=== PATIENT | male | born 1935 | race Caucasian/White ===

== ENCOUNTER 2016-09-12 22:51 | Emergency (ER) | payer MEDICARE, OTHER ==
[~2016-09-12 22:51] MED LIST: ASPIR 8181 MG PO; CATAPRES 0.1MG0.1 MG PO; DIOVAN HCT 3201 EACH PO; JANUMET 50-1,01 EACH PO; LIPITOR TAB 2020 MG PO
[2016-09-12 23:28] LABS: HEMOGLOBIN 12.3 gm/dl (14.0-17.5); RED BLOOD COUNT 4.55 M/UL (4.20-5.50); WHITE BLOOD COUNT 6.6 K/UL (4.5-11.0)
[2016-09-25] MEDS ORDERED: CATAPRES 0.1MG0.1 MG PO (19:46)
[2016-09-25] MEDS ORDERED: JANUMET 50-1,01 EACH PO (19:47)
[2016-09-25] MEDS ORDERED: HYDRALAZINE HCL50 MG PO (19:49)
[2016-09-25] MEDS ORDERED: EXFORGE 10-3201 EACH PO (19:50)
[2016-09-25] MEDS ORDERED: CIPRO250 MG PO (19:51)
[2016-09-30] MEDS ORDERED: PLAVIX 75 MG TA75 MG PO (15:16)
[2016-09-30] MEDS ORDERED: ARICEPT5 MG PO (15:16)
[2016-09-30] MEDS ORDERED: IMDUR ER TAB 6060 MG PO (15:17)
[2016-09-30] MEDS ORDERED: LOPRESSOR 25 MG25 MG PO (15:17)
[2016-09-30] MEDS ORDERED: PROCARDIA XL60 MG PO (15:18)
[2016-09-30] MEDS ORDERED: PROTONIX40 MG PO (15:18)
[2016-09-30] MEDS ORDERED: FLOMAX0.4 MG PO (15:19)
[2016-09-30] MEDS ORDERED: RANEXA500 MG PO (15:19)
[2016-09-30] MEDS ORDERED: NITROSTAT0.4 MG SL (15:20)
[2016-09-30] MEDS ORDERED: JANUVIA100 MG PO (15:21)
== END 2016-09-13 03:00 | disposition short-term general hospital (02) ==
LOC: ER1 22:51
PROVIDERS: Student in an Organized Health Care Education/Training Program
DX: I16.0 Hypertensive urgency (principal); G45.9 Transient cerebral ischemic attack, unspecified; E11.65 Type 2 diabetes mellitus with hyperglycemia; I10 Essential (primary) hypertension; Z79.84 Long term (current) use of oral hypoglycemic drugs; Z79.899 Other long term (current) drug therapy
CPT/HCPCS: 36415; 70450; 71010; 80053; 81001; 82550; 82553; 82962; 83874; 84484; 85025; 85610; 85730; 87086; 93005; 96374; 99285; J0360

== ENCOUNTER 2020-04-13 13:06 | Inpatient (IN) | payer MEDICARE, OTHER ==
[~2020-04-13] VITALS: Ht 182.9 cm; Wt 68.6 kg
[~2020-04-13 13:06] MED LIST changes: +ARICEPT10 MG PO; +CIPRO250 MG PO; +CLARITIN 10MG T10 MG PO; +EXFORGE 10-3201 EACH PO; +FLOMAX0.4 MG PO; +FLONASE 0.05% N16 GM; +HYDRALAZINE HCL50 MG PO; +IMDUR ER TAB 6060 MG PO; +JANUVIA100 MG PO; +LOPRESSOR 25 MG25 MG PO; +NITROSTAT0.4 MG SL; +PLAVIX 75 MG TA75 MG PO; +PROCARDIA XL60 MG PO; +PROTONIX40 MG PO; +RANEXA500 MG PO; +ZITHROMAX250 MG PO
[2020-04-13 14:16] LABS: HEMOGLOBIN 12.7 gm/dl (14.0-17.5); RED BLOOD COUNT 4.54 M/UL (4.20-5.50); WHITE BLOOD COUNT 4.6 K/UL (4.5-11.0)
[2020-04-13 14:50] LABS: BUN/CREATININE RATIO 17 (0-10)
[2020-04-13] MEDS ORDERED: GLUCOTROL 10 MG10 MG PO (21:00)
[2020-04-13] MEDS ORDERED: PROSCAR 5 MG TAB5 MG PO (21:01)
[2020-04-13] MEDS ORDERED: TRADJENTA5 MG PO (21:02)
[2020-04-13] MEDS ORDERED: FLONASE 0.05% N16 GM (21:03)
[2020-04-13] MEDS ORDERED: HYTRIN CAP 1 MG1 MG PO (21:04)
[2020-04-13] MEDS ORDERED: TRANDATE 200 M200 MG PO (21:05)
[2020-04-14 02:52] LABS: HEMOGLOBIN 12.6 gm/dl (14.0-17.5); RED BLOOD COUNT 4.51 M/UL (4.20-5.50)
[2020-04-14 03:02] LABS: WHITE BLOOD COUNT 2.9 K/UL (4.5-11.0)
[2020-04-15 02:37] LABS: HEMOGLOBIN 12.1 gm/dl (14.0-17.5); RED BLOOD COUNT 4.33 M/UL (4.20-5.50)
[2020-04-15 02:39] LABS: WHITE BLOOD COUNT 5.1 K/UL (4.5-11.0)
[2020-04-16 03:42] LABS: HEMOGLOBIN 11.9 gm/dl (14.0-17.5); RED BLOOD COUNT 4.31 M/UL (4.20-5.50)
[2020-04-16 03:49] LABS: WHITE BLOOD COUNT 8.3 K/UL (4.5-11.0)
[2020-04-17 03:34] LABS: HEMOGLOBIN 11.1 gm/dl (14.0-17.5); RED BLOOD COUNT 3.98 M/UL (4.20-5.50); WHITE BLOOD COUNT 7.9 K/UL (4.5-11.0)
[2020-04-18 02:15] LABS: HEMOGLOBIN 12.2 gm/dl (14.0-17.5); RED BLOOD COUNT 4.35 M/UL (4.20-5.50); WHITE BLOOD COUNT 8.3 K/UL (4.5-11.0)
--- NOTE | 2020-04-20 11:35 | NUR ---
PATIENT DESAT TO 84% WHILE ON 5L HFNC. BUMPED PATIENT UP TO 7L AND O2 SAT IS 90-92%.
[2020-04-21 02:29] LABS: HEMOGLOBIN 11.9 gm/dl (14.0-17.5); RED BLOOD COUNT 4.28 M/UL (4.20-5.50); WHITE BLOOD COUNT 8.5 K/UL (4.5-11.0)
[2020-04-22] MEDS ORDERED: ASPIRIN EC81 MG PO (15:18)
== END 2020-04-22 17:45 | disposition home or self-care (01) | DRG 177 ==
LOC: ER1 13:06 → PROG CARE 17:32 → ZEROF 17:32 → PROG CARE 04-14 02:15
PROVIDERS: Internal Medicine; Nurse Practitioner; ADMIT Internal Medicine
PROC: 8E0ZXY6 Isolation (ICD-10-PCS; principal; 2020-04-13)
PROC: XW033E5 Introduction of Remdesivir Anti-infective into Peripheral Vein, Percutaneous Approach, New Technology Group 5 (ICD-10-PCS; 2020-04-13)
DX: U07.1 COVID-19 (principal); J12.82 Pneumonia due to coronavirus disease 2019; J96.01 Acute respiratory failure with hypoxia; N17.9 Acute kidney failure, unspecified; I12.9 Hypertensive chronic kidney disease with stage 1 through stage 4 chronic kidney disease, or unspecified chronic kidney disease; E11.22 Type 2 diabetes mellitus with diabetic chronic kidney disease; N18.30 Chronic kidney disease, stage 3 unspecified; I25.10 Atherosclerotic heart disease of native coronary artery without angina pectoris; E78.5 Hyperlipidemia, unspecified; D72.819 Decreased white blood cell count, unspecified; N40.0 Benign prostatic hyperplasia without lower urinary tract symptoms; F03.90 Unspecified dementia, unspecified severity, without behavioral disturbance, psychotic disturbance, mood disturbance, and anxiety; I35.0 Nonrheumatic aortic (valve) stenosis; Z86.73 Personal history of transient ischemic attack (TIA), and cerebral infarction without residual deficits; Z95.5 Presence of coronary angioplasty implant and graft; Z80.3 Family history of malignant neoplasm of breast; Z82.49 Family history of ischemic heart disease and other diseases of the circulatory system; Z79.84 Long term (current) use of oral hypoglycemic drugs; Z79.899 Other long term (current) drug therapy
CPT/HCPCS: 36415; 36600; 70450; 71045; 71046; 80048; 80053; 82550; 82553; 82728; 82803; 82962; 83605; 83735; 84484; 85025; 85379; 85610; 86140; 87040; 93005; 96365; 96366; 96367; 96372; 96375; 99285; J0692; J0696; J1100; J1644; J7030; U0002

== ENCOUNTER 2021-02-13 13:45 | Inpatient (IN) | payer MEDICARE, OTHER ==
[~2021-02-13] VITALS: Ht 195.6 cm; Wt 80.0 kg
[~2021-02-13 13:45] MED LIST changes: +ASPIRIN EC81 MG PO; +GLIPIZIDE ER10 MG PO; +HYTRIN CAP 1 MG1 MG PO; +PROSCAR 5 MG TAB5 MG PO; +TRADJENTA5 MG PO; +TRANDATE 200 M200 MG PO
[2021-02-13 14:21] LABS: HEMOGLOBIN 13.5 gm/dl (14.0-17.5); RED BLOOD COUNT 4.7 M/UL (4.20-5.50); WHITE BLOOD COUNT 11.7 K/UL (4.5-11.0)
[2021-02-13] MEDS ORDERED: GARLIC1 EAC1 PO (18:19)
[2021-02-14 04:55] LABS: HEMOGLOBIN 12.9 gm/dl (14.0-17.5); RED BLOOD COUNT 4.55 M/UL (4.20-5.50)
[2021-02-15 04:39] LABS: HEMOGLOBIN 12.4 gm/dl (14.0-17.5); RED BLOOD COUNT 4.39 M/UL (4.20-5.50)
[2021-02-15 04:44] LABS: WHITE BLOOD COUNT 11.6 K/UL (4.5-11.0)
[2021-02-16 04:59] LABS: HEMOGLOBIN 13.5 gm/dl (14.0-17.5); RED BLOOD COUNT 4.69 M/UL (4.20-5.50); WHITE BLOOD COUNT 12.3 K/UL (4.5-11.0)
[2021-02-17 02:55] LABS: HEMOGLOBIN 12.3 gm/dl (14.0-17.5); RED BLOOD COUNT 4.35 M/UL (4.20-5.50)
[2021-02-17 02:56] LABS: WHITE BLOOD COUNT 8.7 K/UL (4.5-11.0)
[2021-02-18 03:47] LABS: HEMOGLOBIN 12.8 gm/dl (14.0-17.5); RED BLOOD COUNT 4.53 M/UL (4.20-5.50); WHITE BLOOD COUNT 8.7 K/UL (4.5-11.0)
[2021-02-19 04:10] LABS: RED BLOOD COUNT 4.26 M/UL (4.20-5.50); WHITE BLOOD COUNT 8.9 K/UL (4.5-11.0)
[2021-02-19] MEDS ORDERED: ALBUTEROL1.25 MG/3 INH (08:53)
[2021-02-19] MEDS ORDERED: AUGMENTIN 875-1 EACH PO (08:53)
[2021-02-19] MEDS ORDERED: LASIX40 MG PO (08:53)
[2021-02-19] MEDS ORDERED: CARVEDILOL25 MG PO (08:56)
[2021-02-19] MEDS ORDERED: METFORMIN HCL500 MG PO (08:56)
== END 2021-02-19 10:28 | disposition home or self-care (01) | DRG 177 ==
LOC: ER1 13:45 → CDU 17:32 → CCU 17:32 → PROG CARE 02-16 13:13
PROVIDERS: Emergency Medicine; Physician Assistant; ADMIT Internal Medicine
PROC: 5A09457 Assistance with Respiratory Ventilation, 24-96 Consecutive Hours, Continuous Positive Airway Pressure (ICD-10-PCS; 2021-02-13)
PROC: 3E0333Z Introduction of Anti-inflammatory into Peripheral Vein, Percutaneous Approach (ICD-10-PCS; 2021-02-13)
PROC: B24BZZZ Ultrasonography of Heart with Aorta (ICD-10-PCS; principal; 2021-02-14)
PROC: 5A0955A Assistance with Respiratory Ventilation, Greater than 96 Consecutive Hours, High Flow/Velocity Cannula (ICD-10-PCS; 2021-02-14)
DX: J69.0 Pneumonitis due to inhalation of food and vomit (principal); J96.21 Acute and chronic respiratory failure with hypoxia; I50.33 Acute on chronic diastolic (congestive) heart failure; N17.9 Acute kidney failure, unspecified; Z20.822 Contact with and (suspected) exposure to COVID-19; I13.0 Hypertensive heart and chronic kidney disease with heart failure and stage 1 through stage 4 chronic kidney disease, or unspecified chronic kidney disease; J98.11 Atelectasis; R04.2 Hemoptysis; I44.0 Atrioventricular block, first degree; N18.30 Chronic kidney disease, stage 3 unspecified; E11.22 Type 2 diabetes mellitus with diabetic chronic kidney disease; J44.9 Chronic obstructive pulmonary disease, unspecified; I35.0 Nonrheumatic aortic (valve) stenosis; N40.0 Benign prostatic hyperplasia without lower urinary tract symptoms; E78.5 Hyperlipidemia, unspecified; R13.10 Dysphagia, unspecified; I25.10 Atherosclerotic heart disease of native coronary artery without angina pectoris; I49.3 Ventricular premature depolarization; F03.90 Unspecified dementia, unspecified severity, without behavioral disturbance, psychotic disturbance, mood disturbance, and anxiety; Z86.16 Personal history of COVID-19; Z79.82 Long term (current) use of aspirin; Z95.5 Presence of coronary angioplasty implant and graft; Z86.73 Personal history of transient ischemic attack (TIA), and cerebral infarction without residual deficits; Z90.49 Acquired absence of other specified parts of digestive tract; Z80.3 Family history of malignant neoplasm of breast; Z82.49 Family history of ischemic heart disease and other diseases of the circulatory system; Z79.4 Long term (current) use of insulin; Z99.81 Dependence on supplemental oxygen
CPT/HCPCS: ECHO; 36415; 36600; 71045; 71250; 80048; 80053; 80202; 82550; 82553; 82803; 82962; 83036; 83605; 83735; 83874; 83880; 84484; 85025; 86140; 87040; 87070; 87205; 92526; 92610; 93005; 93306; 94640; 94660; 94760; 96374; 96375; 97161; 97530; 97530-GP-CQ; 99285; J0295; J0360; J0456; J0692; J0696; J1100; J1205; J1940; J3370; J7030; J7050; J7070; U0002

== ENCOUNTER 2021-08-10 20:30 | Inpatient (IN) | payer MEDICARE, OTHER ==
[~2021-08-10] VITALS: Ht 182.9 cm; Wt 83.9 kg
[~2021-08-10 20:30] MED LIST changes: +ADALAT CC60 MG PO; +ALBUTEROL1.25 MG/3 INH; +AUGMENTIN 875-1 EACH PO; +CARVEDILOL25 MG PO; +GARLIC1 EAC1 PO; +LASIX40 MG PO; +METFORMIN HCL500 MG PO; -PROCARDIA XL60 MG PO
[2021-08-10 22:17] LABS: HEMOGLOBIN 14.8 gm/dl (14.0-17.5); RED BLOOD COUNT 5.4 M/UL (4.20-5.50); WHITE BLOOD COUNT 15.7 K/UL (4.5-11.0)
[2021-08-11] MEDS ORDERED: ASPIRIN EC81 MG PO (10:55)
[2021-08-11] MEDS ORDERED: JARDIANCE25 MG PO (10:56)
[2021-08-11] MEDS ORDERED: PROMETHAZINE HC25 M1 PO (10:56)
[2021-08-11] MEDS ORDERED: CARVEDILOL25 MG PO (10:57)
[2021-08-11] MEDS ORDERED: ATORVASTATIN CA40 MG PO (10:57)
[2021-08-11] MEDS ORDERED: FUROSEMIDE40 MG PO (10:57)
[2021-08-11 12:17] LABS: HEMOGLOBIN 13.4 gm/dl (14.0-17.5); RED BLOOD COUNT 4.9 M/UL (4.20-5.50); WHITE BLOOD COUNT 19.1 K/UL (4.5-11.0)
[2021-08-12 03:33] LABS: HEMOGLOBIN 12.2 gm/dl (14.0-17.5); RED BLOOD COUNT 4.49 M/UL (4.20-5.50)
[2021-08-12 03:49] LABS: WHITE BLOOD COUNT 11.4 K/UL (4.5-11.0)
[2021-08-13 04:11] LABS: HEMOGLOBIN 11.4 gm/dl (14.0-17.5); RED BLOOD COUNT 4.26 M/UL (4.20-5.50); WHITE BLOOD COUNT 8.7 K/UL (4.5-11.0)
--- NOTE | 2021-08-13 09:57 | NUR ---
MADE AWARE OF ABNORMAL VITALS AT THIS TIME. HE GAVE ORDERS FOR PRN HYDRALIZINE
--- NOTE | 2021-08-13 11:29 | NUR ---
PATIENTS DAUGHTER IN LAW EXPRESSED MULTIPLE CONCERNS ABOUT PATIENTS LIVING CONDIITONS AND HOME ISSUES FOR THE PATIENT. SHE STATED THAT SHE HAD CONCERNS ABOUT THE CARE THAT THE WAS PROVIDING FOR THE PATIENT. I EXPRESSED THE FAMILY CONCERNS AT THIS TIME WITH AND STATED THAT THE FAMILY REQUESTED AQUATICS SPECIALIST BE INVOLVED FOR THE PATIENT. CARPENTER REFRIGERATOR ADY AWARE OF DISCUSSIONS. I DISCUSSED VISITORS WITHT THE PATIENT WITH THE AT BEDSIDE AND HE STATED THAT HE WAS OKAY WITH HIS CHILDREN VISITING HIM BUT ASKED THAT NOBODY ELSE VIVIT DUE TO HIM BEING WEAK. PATIENT IS ALERT AND ORIENTED AT TIME OF DISCUSSION.
--- NOTE | 2021-08-13 12:25 | NUR ---
GARY NARVAEZ CM STATES THAT SHE WILL SPEAK WITH THREAD WEAVER AT THIS TIME ABOUT PATIENT CASE.
[2021-08-14 07:05] LABS: HEMOGLOBIN 11.5 gm/dl (14.0-17.5); RED BLOOD COUNT 4.31 M/UL (4.20-5.50); WHITE BLOOD COUNT 7.1 K/UL (4.5-11.0)
[2021-08-15] MEDS ORDERED: CEFUROXIME500 MG PO (14:18)
--- NOTE | 2021-08-15 15:47 | NUR ---
1557- PT IS BEING DISCHARGED PER DR QUIROGA. PT IS ALERT AND ORIENTED. I SPOKE WITH PLASTICS SUPERVISOR, SHE STATES PT STATED TO HER HE HAS NO DISCHARGED NEEDS AT THIS TIME. PT STATES HIS IS TAKING HIM HOME.
== END 2021-08-15 16:26 | disposition home or self-care (01) | DRG 391 ==
LOC: ER1 20:30 → CDU 08-11 05:09 → MED SURG 4 08-11 05:09
PROVIDERS: Family Medicine; Internal Medicine; Internal Medicine Infectious Disease; Physician Assistant; Physician Assistant Medical; ADMIT Internal Medicine
DX: A08.4 Viral intestinal infection, unspecified (principal); J69.0 Pneumonitis due to inhalation of food and vomit; N17.9 Acute kidney failure, unspecified; I25.10 Atherosclerotic heart disease of native coronary artery without angina pectoris; Z20.822 Contact with and (suspected) exposure to COVID-19; E11.65 Type 2 diabetes mellitus with hyperglycemia; I12.9 Hypertensive chronic kidney disease with stage 1 through stage 4 chronic kidney disease, or unspecified chronic kidney disease; K57.30 Diverticulosis of large intestine without perforation or abscess without bleeding; E86.0 Dehydration; G30.9 Alzheimer's disease, unspecified; F02.80 Dementia in other diseases classified elsewhere, unspecified severity, without behavioral disturbance, psychotic disturbance, mood disturbance, and anxiety; N18.30 Chronic kidney disease, stage 3 unspecified; E11.22 Type 2 diabetes mellitus with diabetic chronic kidney disease; Z79.4 Long term (current) use of insulin; Z79.01 Long term (current) use of anticoagulants; Z79.82 Long term (current) use of aspirin; Z95.5 Presence of coronary angioplasty implant and graft; Z86.73 Personal history of transient ischemic attack (TIA), and cerebral infarction without residual deficits; Z82.49 Family history of ischemic heart disease and other diseases of the circulatory system
CPT/HCPCS: 0240U; 36415; 70450; 71045; 80048; 80053; 80307; 81001; 82009; 82175; 82962; 83036; 83605; 83690; 83735; 85025; 85027; 87040; 87449; 96374; 96375; 96376; 97161; 99285; J0295; J0360; J0456; J0696; J1650; J2405; J2543; J7030; J7120